=== PATIENT | female | born 1945 | race Caucasian/White ===

== ENCOUNTER 2023-03-19 07:30 | Day surgery (SDC) | payer OTHER, MEDICARE ==
[2023-03-13 17:16] VITALS: BMI 27.8
[2023-03-19] MEDS ORDERED: ERYTHROMYCIN 0.5% OPHTHALMIC OINTMENT 3.5 GM TUBE ONE (08:44)
[2023-03-19] MEDS ORDERED: LIDOCAINE 1%/EPI 1:100000 (50 ML MULTI DOSE VIAL) ONE (08:44)
[2023-03-19] MEDS ORDERED: ceFAZolin SODIUM 1 GM VIAL ONE (08:44)
[2023-03-19] MEDS ORDERED: BUPIVACAINE HCL/PF 0.5% (5MG/ML) 10 ML VIAL ONE (08:44)
[2023-03-19] MEDS ORDERED: TETRACAINE 0.5% OPHTH SOLN 2 ML BOTTLE ONE (08:44)
[2023-03-19] MEDS ORDERED: POVIDONE-IODINE 5% OPHTHALMIC PREP 30 ML SOLUTION ONE (08:44)
[2023-03-19] MEDS ORDERED: MIDAZOLAM HCL 2 MG/2 ML SINGLE DOSE VIAL ONE (09:07)
[2023-03-19] MEDS ORDERED: FENTANYL CITRATE/PF 50 MCG/ML VIAL ONE (09:07)
[2023-03-19] MEDS ORDERED: CLINDAMYCIN 600MG PREMIX IVPB 600 MG/50 ML BAG IVPB ONE (09:20)
[2023-03-19] MEDS ORDERED: PROPOFOL 20 ML ONE ×2 (09:21→09:50)
[2023-03-19] MEDS ORDERED: GENTAMICIN SO4 80 MG/2 ML VIAL ONE (09:27)
[2023-03-19] MEDS ORDERED: GLYCOPYRROLATE 0.2 MG/1 ML VIAL ONE (09:48)
[2023-03-19] MEDS ORDERED: DEXAMETHASONE SOD PHOSPHATE 4 MG/1 ML VIAL ONE (09:48)
[2023-03-19] MEDS ORDERED: ONDANSETRON 4 MG/2 ML VIAL ONE (09:48)
[2023-03-19] MEDS ORDERED: ONDANSETRON 4 MG/2 ML VIAL IVPUSH PRN (10:44)
[2023-03-19] MEDS ORDERED: LACTATED RINGERS SOLUTION 1,000 ML IV SCH (10:45)
[2023-03-19 11:41] VITALS: RESP 18; TEMP 97.6
[2023-03-19 12:37] VITALS: BP 110/74; PULSE 65
== END 2023-03-19 12:40 | disposition home or self-care (01) ==
LOC: FASU 07:30
PROVIDERS: ATTEND Ophthalmology
PROC: 0HX1XZZ Transfer Face Skin, External Approach (ICD-10-PCS; 2023-03-19)
PROC: 0KX10Z1 Transfer Facial Muscle with Subcutaneous Tissue, Open Approach (ICD-10-PCS; 2023-03-19)
PROC: 08SQ0ZZ Reposition Right Lower Eyelid, Open Approach (ICD-10-PCS; principal; 2023-03-19 09:36)
DX: H02.89 Other specified disorders of eyelid (principal); Z85.828 Personal history of other malignant neoplasm of skin
CPT/HCPCS: 88304-TC; 94760